=== PATIENT | male | born 1985 | race Caucasian/White ===

== ENCOUNTER 2016-08-21 13:11 | Emergency (ER) | payer BC ==
[~2016-08-21] VITALS: Ht 177.8 cm; Wt 98.3 kg
[~2016-08-21 13:11] MED LIST: CLEOCIN300 MG PO; OXYCODONE H5 MG/5 ML PO
[2016-08-21 14:18] LABS: HEMATOCRIT 46.5 % (38.0-50.0); MCH 30.6 PG (29.0-34.0); MCHC 34.6 G/DL (30.0-36.0); MCV 88.2 FL (86-99); MEAN PLAT.VOLUME 9.7 uM^3 (9.0-12.4); PLATELET COUNT 250 K/uL (156-360); RBC DIS.WIDTH-CV 12.2 % (11.8-14.6); RBC DIS.WIDTH-SD 39.5 % (39-53); RED BLOOD COUNT 5.27 M/uL (4.00-5.50); WHITE BLOOD COUNT 8.6 K/uL (4.1-10.2)
[2016-08-21 14:28] LABS: CHLORIDE 104 mEq/L (99-109); POTASSIUM 3.9 mEq/L (3.7-5.4); SODIUM 140 mEq/L (136-147)
[2016-08-21 14:29] LABS: GLUCOSE 86 mg/dL (70-99)
[2016-08-21 14:31] LABS: ANION GAP 11 MEQ/L (2-14)
[2016-08-21 14:33] LABS: GFR ESTIMATE (CALCULATED) > 59 mL/min/
[2016-08-21 14:34] LABS: UREA NITROGEN (BUN) 11 mg/dL (9-23)
[2016-08-21 14:39] LABS: TROP-I INTERPRETATION NEGATIVE; TROPONIN-I < 0.01 ng/mL (0.0-0.30)
[2016-08-21 15:30] VITALS: BP 133/62
== END 2016-08-21 15:30 | disposition home or self-care (01) ==
LOC: EME 13:11
DX: R07.9 Chest pain, unspecified (principal); Z88.0 Allergy status to penicillin
CPT/HCPCS: 71020; 80048; 84484; 85027; 93005; 99281; 99284